=== PATIENT | male | born 1930 | race Caucasian/White ===

== ENCOUNTER 2016-09-20 08:22 | Emergency (ER) | payer OTHER ==
--- NOTE | 2016-09-20 08:32 | CPEKG ---
Heart Rate: 73 RR Interval: 822 QRSD Interval: 112 QT Interval: 396 QTC Interval: 437 QRS [place]: -51 T Wave [place]: 87 EKG Severity - ABNORMAL ECG - EKG Impression: ATRIAL FIBRILLATION EKG Impression: LAD, CONSIDER LEFT ANTERIOR FASCICULAR BLOCK EKG Impression: ANTERIOR INFARCT, AGE INDETERMINATE Electronically Signed By: Esme Mars 20-Sep-2016 09:24:06
[2016-09-20 08:33] VITALS: RESP 16; TEMP 97.5
--- NOTE | 2016-09-20 08:50 | EDPHY ---
H & P Stated Complaint: Since 3pm 09/19 speech and right arm parathesia.Improved since Time Seen by Provider: 09/20/16 08:25 HPI/ROS: CHIEF COMPLAINT: Right hand weakness and slurred speech History by patient HISTORY OF PRESENT ILLNESS: 86-year-old man with a history of hypertension, high cholesterol with no prior cardiac history presents complaining of difficulty writing checks using his right hand yesterday as well as some slurred speech and right facial droop. The hand weakness symptoms started in the afternoon and in the evening his noticed the speech and facial droop. The patient seemed to have the symptoms this morning however the also notes that he is better now. He has never had anything like this before. He denies any focal numbness or tingling. He denies any current weakness. He did take a baby aspirin this morning, as he does every day. He has never smoked. He has no history of diabetes. REVIEW OF SYSTEMS: As in HPI, and all other systems reviewed and are negative Source: Patient, Family - Medical/Surgical History Other PMH: HTN. Cholecystectomy. Cholesterol - Family History Significant Family History: No pertinent family hx - Social History Smoking Status: Never smoked - Physical Exam Exam: General Appearance: Alert, cooperative. Eyes: Pupils equal and round no pallor or injection. Extraocular movements intact ENT, Mouth: Mucous membranes moist. Respiratory: Normal, effort, There are no retractions, lungs are clear to auscultation. Cardiovascular: Irregular rate and rhythm. No murmurs, gallops, rubs appreciated Gastrointestinal: Abdomen is soft and nontender, no masses, bowel sounds normal. Neurological: Awake, alert and oriented x 3, cranial nerves 2-12 intact, no pronator drift, normal gait, heel to neville intact bilaterally, strength 5/5 and equal bilateral Skin: Warm and dry, no rashes. Musculoskeletal: Neck is supple nontender. Extremities are symmetrical, full range of motion. Psychiatric: Patient has normal affect, there is no agitation. Constitutional: Initial Vital Signs Temperature (C) 36.4 C 09/20/16 08:22 Heart Rate 65 09/20/16 08:22 Respiratory Rate 16 09/20/16 08:22 Blood Pressure 153/86 H 09/20/16 08:22 O2 Sat (%) 97 09/20/16 08:22 O2 Delivery Mode Room Air Allergies/Adverse Reactions: No Known Allergies Allergy (Unverified 09/20/16 08:33) Home Medications: Medication Instructions Recorded Aspirin 81mg (*) 09/20/16 Fish Oil 09/20/16 Hydrochlorothiazide 09/20/16 Omeprazole 09/20/16 Presor-Vision 09/20/16 Valsartan 09/20/16 Vitamin D3 09/20/16 Zetia 09/20/16 Medical Decision Making - Diagnostics EKG Interpretation: Atrial fibrillation at a rate of 73 with LAFB, Q-waves in the anterior leads, no old EKG available for comparison. Imaging Results: Imaging Impressions Head CT 09/20/16 08:27 Impression: 1. 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 2. Negative for hemorrhage or mass lesion. Results called and discussed with Esme Mars MD on 09/20/2016 at 9:32 Imaging: Discussed imaging studies w/ call manager Radiologist ED Course/Re-evaluation: 86-year-old male with history of hypertension, high cholesterol presents with episode of right hand weakness, dysarthria and facial droop yesterday which has subsequently resolved. History is very concerning for transient ischemic attack. ECG shows atrial fibrillation which is a new diagnosis for this patient can concerning for stroke/TIA. Head CT was read as nothing acute per the radiologist. Labs are unremarkable. Troponin is negative. Patient took a baby aspirin at home but he was given full dose aspirin in the ED. Plan is to admit the patient for further workup and evaluation. Patient and his request to be transferred to [facility]. I discussed the case with Dr. Saez, on-call for hospitalist at [facility] who agrees to accept the patient in transfer. - Data Points Laboratory Results: Laboratory Results 09/20/16 08:40 09/20/16 08:40 09/20/16 09/20/16 09/20/16 08:40 08:40 08:40 WBC RBC Hgb Hct MCV MCH MCHC RDW Plt Count MPV Neut % (Auto) Lymph % (Auto) Graham % (Auto) Eos % (Auto) Baso % (Auto) Nucleat RBC Rel Count Absolute Neuts (auto) Absolute Lymphs (auto) Absolute Monos (auto) Absolute Eos (auto) Absolute Basos (auto) Absolute Nucleated RBC Immature Gran % Immature Gran # PT 14.3 SEC SEC (12.0-15.0) INR 1.14 (0.83-1.16) APTT 29.6 SEC SEC (23.0-38.0) Sodium 140 mEq/L mEq/L (134-144) Potassium 4.3 mEq/L mEq/L (3.5-5.2) Chloride 102 mEq/L mEq/L (97-110) Carbon Dioxide 24 mEq/l mEq/l (22-31) Anion Gap 14 mEq/L mEq/L (8-16) BUN 19 mg/dL mg/dL (7-23) Creatinine 1.2 mg/dL mg/dL (0.7-1.3) Estimated GFR 57 Glucose 104 mg/dL H mg/dL (70-100) Calcium 8.9 mg/dL mg/dL (8.5-10.4) Troponin I < 0.012 ng/mL ng/mL (0-0.034) TSH 2.230 uIU/mL uIU/mL (0.465-4.680) 09/20/16 08:40 WBC 6.43 10^3/uL 10^3/uL (3.80-9.50) RBC 5.13 10^6/uL 10^6/uL (4.40-6.38) Hgb 15.4 g/dL g/dL (13.7-17.5) Hct 44.6 % % (40.0-51.0) MCV 86.9 fL fL (81.5-99.8) MCH 30.0 pg pg (27.9-34.1) MCHC 34.5 g/dL g/dL (32.4-36.7) RDW 13.5 % % (11.5-15.2) Plt Count 149 10^3/uL L 10^3/uL (150-400) MPV 11.4 fL fL (8.7-11.7) Neut % (Auto) 67.7 % % (39.3-74.2) Lymph % (Auto) 18.5 % % (15.0-45.0) Graham % (Auto) 8.2 % % (4.5-13.0) Eos % (Auto) 4.7 % % (0.6-7.6) Baso % (Auto) 0.6 % % (0.3-1.7) Nucleat RBC Rel Count 0.0 % % (0.0-0.2) Absolute Neuts (auto) 4.35 10^3/uL 10^3/uL (1.70-6.50) Absolute Lymphs (auto) 1.19 10^3/uL 10^3/uL (1.00-3.00) Absolute Monos (auto) 0.53 10^3/uL 10^3/uL (0.30-0.80) Absolute Eos (auto) 0.30 10^3/uL 10^3/uL (0.03-0.40) Absolute Basos (auto) 0.04 10^3/uL 10^3/uL (0.02-0.10) Absolute Nucleated RBC 0.00 10^3/uL 10^3/uL (0-0.01) Immature Gran % 0.3 % % (0.0-1.1) Immature Gran # 0.02 10^3/uL 10^3/uL (0.00-0.10) PT INR APTT Sodium Potassium Chloride Carbon Dioxide Anion Gap BUN Creatinine Estimated GFR Glucose Calcium Troponin I TSH Medications Given: Discontinued Medications Aspirin (Aspirin) 243 mg PO EDNOW ONE Stop: 09/20/16 09:24 Last Admin: 09/20/16 09:33 Dose: 243 mg Departure - Departure Referrals: MARTA COHEN [Primary Care Provider] - As per Instructions
[2016-09-20 08:51] LABS: % IMMATURE GRANULYOCYTES 0.3 % (0.0-1.1); ABSOLUTE IMMATURE GRANULOCYTES 0.02 10^3/uL (0.00-0.10); ADD DIFF? NO; ADD MORPH? NO; ADD SCAN? NO; ATYPICAL LYMPHOCYTE FLAG 0 (0-99); FRAGMENT RBC FLAG 0 (0-99); HEMATOCRIT 44.6 % (40.0-51.0); HEMOGLOBIN 15.4 g/dL (13.7-17.5); LEFT SHIFT FLG 0 (0-99); LIPEMIA HEMOLYSIS FLAG 90 (0-99); MEAN CELL HEMOGLOBIN CONCENTR. 34.5 g/dL (32.4-36.7); MEAN CELL VOLUME 86.9 fL (81.5-99.8); MEAN PLATELET VOLUME 11.4 fL (8.7-11.7); PLATELET CLUMPS FLAG 0 (0-99); PLATELET COUNT 149 10^3/uL (150-400); RED BLOOD CELL COUNT 5.13 10^6/uL (4.40-6.38); RED CELL DISTRIBUTION WIDTH 13.5 % (11.5-15.2)
[2016-09-20 09:03] LABS: CALCIUM 8.9 mg/dL (8.5-10.4); CREATININE 1.2 mg/dL (0.7-1.3); POTASSIUM 4.3 mEq/L (3.5-5.2)
[2016-09-20 09:10] LABS: APTT 29.6 SEC (23.0-38.0); INR 1.14 (0.83-1.16); PROTIME(PATIENT) 14.3 SEC (12.0-15.0)
[2016-09-20] MEDS ORDERED: ASPIRIN 81 MG CHEWABLE TAB PO ONE (09:23)
[2016-09-20 09:50] LABS: TROPONIN I < 0.012 ng/mL (0-0.034)
[2016-09-20 11:31] VITALS: O2SAT 96
[2016-09-20 12:50] VITALS: BP 142/80; PULSE 70
== END 2016-09-20 12:35 | disposition short-term general hospital (02) ==
LOC: CED 08:22
DX: G45.9 Transient cerebral ischemic attack, unspecified (principal); I48.91 Unspecified atrial fibrillation; I10 Essential (primary) hypertension
CPT/HCPCS: 70450-PO; 80048-PO; 84443-PO; 84484-PO; 85025-PO; 85610-PO; 85730-PO

== ENCOUNTER → 2018-04-15 | Outpatient (CLI) | payer OTHER ==
[~2018-04-15] MED LIST: IOPAMIDOL (ISOVUE-300) 100 ML BTL ONE
== END ==
LOC: FIMAGING 09:29
PROVIDERS: ATTEND Internal Medicine Pulmonary Disease
DX: R91.8 Other nonspecific abnormal finding of lung field (principal); I77.810 Thoracic aortic ectasia; K44.9 Diaphragmatic hernia without obstruction or gangrene
CPT/HCPCS: 71260; Q9967; 82565-PO

== ENCOUNTER → 2018-08-04 | Outpatient (CLI) | payer OTHER | LOC: FIMAGING 12:54 | PROVIDERS: ATTEND Internal Medicine Pulmonary Disease | DX: J98.11 Atelectasis (principal); R91.1 Solitary pulmonary nodule; I77.810 Thoracic aortic ectasia; I51.7 Cardiomegaly; I25.10 Atherosclerotic heart disease of native coronary artery without angina pectoris; Z90.49 Acquired absence of other specified parts of digestive tract; Z85.820 Personal history of malignant melanoma of skin | CPT/HCPCS: 71260; Q9967; 82565-PO ==